=== PATIENT | male | born 1995 | race Caucasian/White ===

== ENCOUNTER 2022-05-29 13:02 | Outpatient (CLI) | payer OTHER, SELFPAY ==
[2022-05-29 17:38] LABS: Chloride* 105 mmol/L (96-114); Potassium* 3.9 mmol/L (3.6-5.1); Sodium* 142 mmol/L (135-149)
[2022-05-29 17:40] LABS: Cholesterol* 166 mg/dL (90-199)
[2022-05-29 17:41] LABS: Blood Urea Nitrogen* 14 mg/dL (5-24); Carbon Dioxide* 23 mmol/L (20-32); Creatinine* 0.9 mg/dL (0.5-1.5); Estimated Glomerular Filt Rate 120 ml/min; Glucose* 95 mg/dL (60-115); HDL Cholesterol* 51 mg/dL (>=40); LDL Cholesterol Calculated 100 mg/dL (<100); Triglycerides* 77 mg/dL (40-149)
[2022-05-29 18:20] LABS: HIV 1/2/P24 Combo Screen* Negative (Negative)
[2022-05-29 18:28] LABS: Hepatitis C Virus Antibody* Negative (Negative)
[2022-05-29 18:56] LABS: Chlamydia DNA Amplified* NOT DETECTED (No Detected); GC DNA Amplified* NOT DETECTED (No Detected)
== END 2022-05-29 13:03 | disposition home or self-care (01) ==
PROVIDERS: PCP Family Medicine; Visit Provider Family Medicine
DX: R63.4 Abnormal weight loss (principal); E78.5 Hyperlipidemia, unspecified; Z11.3 Encounter for screening for infections with a predominantly sexual mode of transmission; F41.9 Anxiety disorder, unspecified
CPT/HCPCS: 80048; 80061; 84443; 86703; 86803; 87491; 87591

== ENCOUNTER 2024-10-25 08:14 | Outpatient (CLI) | payer OTHER, SELFPAY | END 2024-10-25 08:15 | disposition home or self-care (01) | PROVIDERS: PCP Family Medicine; Visit Provider Family Medicine | DX: E78.00 Pure hypercholesterolemia, unspecified (principal) | CPT/HCPCS: 80048; 80061 ==